=== PATIENT | male | born 1995 | race Caucasian/White ===

== ENCOUNTER 2018-07-23 14:32 | Emergency (ER) | payer OTHER ==
[~2018-07-23] VITALS: Ht 177.8 cm; Wt 80.3 kg
[2018-07-23 14:52] VITALS: Ht 177.8 cm; Wt 80.3 kg
[2018-07-23 18:11] VITALS: BP 135/83
== END 2018-07-23 18:11 | disposition home or self-care (01) ==
LOC: ED 14:32
DX: S62.101A Fracture of unspecified carpal bone, right wrist, initial encounter for closed fracture (principal); Y09 Assault by unspecified means; Y93.89 Activity, other specified; Y92.89 Other specified places as the place of occurrence of the external cause; Y99.8 Other external cause status

== ENCOUNTER 2019-07-19 10:45 | Emergency (ER) | payer OTHER ==
[~2019-07-19] VITALS: Ht 177.8 cm; Wt 79.4 kg
[2019-07-19 10:53] VITALS: Ht 177.8 cm; Wt 79.4 kg
[2019-07-19 12:03] VITALS: BP 148/76
== END 2019-07-19 12:29 | disposition home or self-care (01) ==
LOC: ED 10:45
DX: M54.42 Lumbago with sciatica, left side (principal)
CPT/HCPCS: J1100; J1885

== ENCOUNTER 2019-12-10 02:09 | Emergency (ER) | payer OTHER ==
[~2019-12-10] VITALS: Ht 180.3 cm; Wt 81.6 kg
[2019-12-10 02:17] VITALS: Ht 180.3 cm; Wt 81.6 kg
[2019-12-10 03:12] VITALS: BP 152/92
== END 2019-12-10 03:12 | disposition other institution (70) ==
LOC: ED 02:09
DX: Z02.89 Encounter for other administrative examinations (principal)

== ENCOUNTER 2020-03-08 07:10 | Emergency (ER) | payer OTHER ==
[~2020-03-08] VITALS: Ht 180.3 cm; Wt 68.9 kg
[2020-03-08 07:22] VITALS: Ht 180.3 cm; Wt 68.9 kg
[2020-03-08 08:06] VITALS: BP 134/80
== END 2020-03-08 08:27 | disposition other institution (70) ==
LOC: ED 07:10
DX: T14.90XA Injury, unspecified, initial encounter (principal); R07.89 Other chest pain; M25.511 Pain in right shoulder; X58.XXXA Exposure to other specified factors, initial encounter; Y93.89 Activity, other specified; Y92.89 Other specified places as the place of occurrence of the external cause; Y99.8 Other external cause status

== ENCOUNTER 2020-03-08 07:10 | Emergency (ER) | payer OTHER | END 2020-03-08 08:27 | disposition other institution (70) | LOC: ED 07:10 | DX: Z02.89 Encounter for other administrative examinations (principal) ==